=== PATIENT | female | born 1935 | race African-American/Black ===

== ENCOUNTER 2017-05-02 00:27 | Inpatient (IN) | payer SELFPAY ==
[~2017-05-02] VITALS: Ht 152.4 cm; Wt 70.8 kg
[2017-05-02] MEDS ORDERED: FUROSEMIDE 40MG/4ML VIAL IV ONE (02:30)
[2017-05-02] MEDS ORDERED: NITROGLYCERIN OINT 1GM/INCH UDPKT TD ONE (02:30)
[2017-05-02 02:45] LABS: BASOPHILS % 0.9 % (0.0-2.0); EOSINOPHILS % 0.2 % (0.0-5.0); HEMATOCRIT. 37.6 % (36.0-48.0); HEMOGLOBIN. 12.3 g/dL (12.0-16.0); LYMPHOCYTES % 11.5 % (20.0-50.0); MEAN CORPUSCULAR HEMOGLOBIN 31.6 pg (28.0-32.0); MEAN CORPUSCULAR VOLUME 96.2 fL (81.0-99.0); MEAN PLATELET VOLUME 9.5 fl (7.4-10.4); MONOCYTES % 4.7 % (2.0-8.0); NEUTROPHILS % 82.7 % (40.0-76.0); PLATELET 193 x1000/uL (130-400)
[2017-05-02 02:57] LABS: CARBON DIOXIDE 30 mEq/L (21-32); CHLORIDE 103 mEq/L (98-107)
[2017-05-02 03:17] LABS: TROPONIN I 0.57 ng/mL (0.00-0.04)
[2017-05-02] MEDS ORDERED: ASPIRIN 325MG TABLET PO ONE (05:00)
[2017-05-02 08:45] VITALS: BP 165/85
[2017-05-02] MEDS ORDERED: LORAZEPAM 2MG/ML CPJ IV PRN (09:00)
[2017-05-02] MEDS ORDERED: ACETAMINOPHEN 325MG TABLET PO PRN (09:00)
[2017-05-02] MEDS ORDERED: DEXTROSE 50% WATER 50ML SYRINGE IV PRN (09:00)
[2017-05-02] MEDS ORDERED: ENOXAPARIN 40MG/0.4ML SYR SUBCUT SCH (09:00)
[2017-05-02] MEDS ORDERED: TRAMADOL 50MG TABLET PO PRN (09:00)
[2017-05-02] MEDS ORDERED: ONDANSETRON HCL 4MG/2ML VIAL IV PRN (09:00)
[2017-05-02] MEDS ORDERED: IPRATROPIUM/ALBUTEROL 0.5-3(2.5)MG/3ML NEB INH PRN (09:00)
[2017-05-02] MEDS ORDERED: NA PHOS,M-B/NA PHOS,DI-BA ENEMA 118ML PR PRN (09:00)
[2017-05-02] MEDS ORDERED: GUAIFENESIN 200MG/10ML SUGAR FREE UDC PO PRN (09:00)
[2017-05-02] MEDS ORDERED: CLONIDINE 0.1MG TABLET PO PRN (09:00)
[2017-05-02] MEDS ORDERED: MAGNESIUM/ALUMINUM HYDROXIDE/SIMETHICONE 30ML UDC PO PRN (09:00)
[2017-05-02] MEDS: BLOOD SUGAR DIAGNOSTIC STRIP TEST SCH ×4 (09:00→21:53)
[2017-05-02] MEDS ORDERED: DOCUSATE SODIUM 100MG CAPSULE PO PRN (09:00)
[2017-05-02] MEDS: INSULIN LISPRO 100 UNITS/ML SUBCUT SCH ×4 (09:00→21:00)
[2017-05-02] MEDS ORDERED: DIPHENHYDRAMINE 50MG/ML VIAL IV PRN (09:00)
[2017-05-02] MEDS: PANTOPRAZOLE SODIUM 40 MG/VIAL IV SCH (09:42)
[2017-05-02] MEDS: FUROSEMIDE 40MG/4ML VIAL IVP SCH ×2 (09:42→21:53)
[2017-05-02] MEDS: ZINC SULFATE 220 MG ( 50 ) CAPSULE PO SCH (09:43)
[2017-05-02] MEDS: ASCORBIC ACID 500 MG TABLET PO SCH ×2 (09:43→21:53)
[2017-05-02] MEDS: METOPROLOL TARTRATE 25MG TABLET PO SCH ×2 (09:43→21:53)
[2017-05-02] MEDS: LISINOPRIL 20MG TABLET PO SCH ×2 (09:43→21:53)
[2017-05-02] MEDS: ASPIRIN 325MG EC TABLET PO SCH (09:43)
[2017-05-02] MEDS ORDERED: POTASSIUM CHLORIDE 20MEQ TABLET SR PO SCH (09:45)
[2017-05-02 10:58] VITALS: BP 165/85
[2017-05-02 12:00] VITALS: BP 131/70
[2017-05-02] MEDS: LEVOFLOXACIN 750MG PREMIX 150 ML IV SCH (12:32)
[2017-05-02 15:42] LABS: CREATINE KINASE MB FRACTION 5.2 ng/mL (0.5-3.6)
[2017-05-02 15:50] LABS: TROPONIN I 1.3 ng/mL (0.00-0.04)
[2017-05-02 16:00] VITALS: BP 174/89
[2017-05-02] MEDS: NITROGLYCERIN OINT 1GM/INCH UDPKT TD SCH ×2 (16:31→21:54)
[2017-05-02] MEDS: SPIRONOLACTONE 25MG TABLET PO SCH (17:29)
[2017-05-02 18:17] LABS: CLARITY URINE CLEAR (CLEAR); COLOR URINE YELLOW (YELLOW); GLUCOSE URINE NEGATIVE (NEGATIVE); KETONES URINE NEGATIVE (NEGATIVE); LEUKOCYTE ESTERASE URINE TRACE (NEGATIVE); NITRITE URINE NEGATIVE (NEGATIVE); OCCULT BLOOD URINE NEGATIVE (NEGATIVE); PH URINE 7.5 (4.5-8.0); PROTEIN URINE NEGATIVE (NEGATIVE); SPECIFIC GRAVITY URINE 1.008 (1.005-1.030); UROBILINOGEN URINE 0.2 E.U./dL (0.2-1.0)
[2017-05-02 18:43] LABS: *AMPHETAMINES SCREEN URINE NEGATIVE (NEGATIVE); *BARBITURATES SCREEN URINE NEGATIVE (NEGATIVE); *BENZODIAZEPINES SCREEN URINE NEGATIVE (NEGATIVE); *COCAINE SCREEN URINE NEGATIVE (NEGATIVE); CANNABINOID URINE SCREEN NEGATIVE (NEGATIVE); METHADONE URINE SCREEN NEGATIVE (NEGATIVE); OPIATES URINE SCREEN NEGATIVE (NEGATIVE); PHENCYCLIDINE URINE SCREEN NEGATIVE (NEGATIVE)
[2017-05-02 20:00] VITALS: BP 125/70
[2017-05-02] MEDS ORDERED: ENOXAPARIN 60MG/0.6ML SYR SUBCUT NR (20:00)
[2017-05-02] MEDS ORDERED: ZOLPIDEM TARTRATE 5MG TABLET PO PRN (21:00)
[2017-05-03 00:30] VITALS: BP 124/74
[2017-05-03] MEDS: NITROGLYCERIN OINT 1GM/INCH UDPKT TD SCH ×6 (00:51→20:50)
[2017-05-03 04:00] VITALS: BP 150/82
[2017-05-03] MEDS: BLOOD SUGAR DIAGNOSTIC STRIP TEST SCH ×4 (05:19→20:56)
[2017-05-03] MEDS: SPIRONOLACTONE 25MG TABLET PO SCH ×2 (05:19→17:45)
[2017-05-03] MEDS: INSULIN LISPRO 100 UNITS/ML SUBCUT SCH ×4 (05:30→20:56)
[2017-05-03] MEDS ORDERED: SODIUM CHLORIDE 0.45% 1,000 ML IV ONE (06:00)
[2017-05-03 06:46] LABS: BASOPHILS % 0.6 % (0.0-2.0); EOSINOPHILS % 1.1 % (0.0-5.0); HEMATOCRIT. 35.7 % (36.0-48.0); LYMPHOCYTES % 40.9 % (20.0-50.0); MEAN CORPUSCULAR HEMOGLOBIN 31.9 pg (28.0-32.0); MEAN CORPUSCULAR VOLUME 94.8 fL (81.0-99.0); MEAN PLATELET VOLUME 9.6 fl (7.4-10.4); MONOCYTES % 8.7 % (2.0-8.0); NEUTROPHILS % 48.7 % (40.0-76.0); PLATELET 193 x1000/uL (130-400); RED BLOOD CELL COUNT 3.77 mill/uL (4.2-5.4); RED CELL DISTRIBUTION WIDTH 12.9 % (11.6-14.6)
[2017-05-03 07:05] LABS: CARBON DIOXIDE 31 mEq/L (21-32); CHLORIDE 100 mEq/L (98-107); CREATINE KINASE 136 IU/L (26-192); CREATINE KINASE MB FRACTION 2.7 ng/mL (0.5-3.6); HDL CHOLESTEROL 40 mg/dL (40-59); LDL CHOLESTEROL 77 mg/dL (5-100)
[2017-05-03 08:00] VITALS: BP 149/78
[2017-05-03 08:10] LABS: TROPONIN I 0.68 ng/mL (0.00-0.04)
[2017-05-03] MEDS: ASCORBIC ACID 500 MG TABLET PO SCH ×2 (08:57→20:50)
[2017-05-03] MEDS: ZINC SULFATE 220 MG ( 50 ) CAPSULE PO SCH (08:57)
[2017-05-03] MEDS: LISINOPRIL 20MG TABLET PO SCH (08:57)
[2017-05-03] MEDS: PANTOPRAZOLE SODIUM 40 MG/VIAL IV SCH (08:58)
[2017-05-03] MEDS: METOPROLOL TARTRATE 25MG TABLET PO SCH (08:58)
[2017-05-03] MEDS: ASPIRIN 325MG EC TABLET PO SCH (09:50)
[2017-05-03] MEDS ORDERED: AMLODIPINE 2.5MG TABLET PO SCH (10:45)
[2017-05-03 12:00] VITALS: BP 154/92
[2017-05-03 16:00] VITALS: BP 140/79
[2017-05-03] MEDS: LOSARTAN POTASSIUM 50 MG TABLET PO SCH (17:45)
[2017-05-03 20:00] VITALS: BP 129/78
[2017-05-03] MEDS: CARVEDILOL 3.125 MG TABLET PO SCH (20:51)
[2017-05-03] MEDS: AMLODIPINE 5MG TABLET PO SCH (20:51)
[2017-05-04] VITALS: BP 126/78
[2017-05-04] MEDS: NITROGLYCERIN OINT 1GM/INCH UDPKT TD SCH ×4 (01:01→12:00)
[2017-05-04 04:00] VITALS: BP 132/68
[2017-05-04] MEDS: BLOOD SUGAR DIAGNOSTIC STRIP TEST SCH ×2 (05:49→12:10)
[2017-05-04] MEDS: SPIRONOLACTONE 25MG TABLET PO SCH (05:49)
[2017-05-04] MEDS: INSULIN LISPRO 100 UNITS/ML SUBCUT SCH ×2 (05:49→12:14)
[2017-05-04 06:23] LABS: BASOPHILS % 0.6 % (0.0-2.0); EOSINOPHILS % 1.8 % (0.0-5.0); HEMATOCRIT. 33.1 % (36.0-48.0); HEMOGLOBIN. 11.1 g/dL (12.0-16.0); MEAN CORPUSCULAR HEMOGLOBIN 31.8 pg (28.0-32.0); MEAN CORPUSCULAR VOLUME 94.5 fL (81.0-99.0); MEAN PLATELET VOLUME 9.2 fl (7.4-10.4); NEUTROPHILS % 49.6 % (40.0-76.0); PLATELET 185 x1000/uL (130-400); RED CELL DISTRIBUTION WIDTH 12.9 % (11.6-14.6)
[2017-05-04 07:22] LABS: CREATINE KINASE MB FRACTION 0.9 ng/mL (0.5-3.6)
[2017-05-04 07:34] LABS: TROPONIN I 0.42 ng/mL (0.00-0.04)
[2017-05-04 08:00] VITALS: BP 119/68
[2017-05-04] MEDS: LOSARTAN POTASSIUM 50 MG TABLET PO SCH (09:00)
[2017-05-04] MEDS ORDERED: FAMOTIDINE 20MG TABLET PO SCH (09:00)
[2017-05-04] MEDS: AMLODIPINE 5MG TABLET PO SCH (09:00)
[2017-05-04] MEDS: ASCORBIC ACID 500 MG TABLET PO SCH (09:14)
[2017-05-04] MEDS: ZINC SULFATE 220 MG ( 50 ) CAPSULE PO SCH (09:14)
[2017-05-04] MEDS: ASPIRIN 325MG EC TABLET PO SCH (09:14)
[2017-05-04] MEDS: CARVEDILOL 3.125 MG TABLET PO SCH (09:14)
[2017-05-04] MEDS: LEVOFLOXACIN 750MG PREMIX 150 ML IV SCH (11:09)
[2017-05-04 12:00] VITALS: BP 135/80
[2017-05-04 12:42] VITALS: BP 135/80
[2017-05-04] MEDS ORDERED: FUROSEMIDE 20MG TABLET PO SCH (21:00)
[2017-05-06] MEDS ORDERED: LEVOFLOXACIN 250MG TABLET PO SCH (11:00)
== END 2017-05-04 15:10 | disposition home or self-care (01) | DRG 190 ==
LOC: ER 00:27 → 7WST 05:19 → EDBEDREQ 05:22 → ENRESERV 07:00
PROVIDERS: ADMIT Internal Medicine; ATTEND Internal Medicine
DX: I21.4 Non-ST elevation (NSTEMI) myocardial infarction (principal); J96.90 Respiratory failure, unspecified, unspecified whether with hypoxia or hypercapnia; I50.43 Acute on chronic combined systolic (congestive) and diastolic (congestive) heart failure; J18.9 Pneumonia, unspecified organism; I42.9 Cardiomyopathy, unspecified; E11.9 Type 2 diabetes mellitus without complications; I11.0 Hypertensive heart disease with heart failure; I45.10 Unspecified right bundle-branch block; D72.829 Elevated white blood cell count, unspecified; E87.6 Hypokalemia; J45.909 Unspecified asthma, uncomplicated; N28.9 Disorder of kidney and ureter, unspecified
CPT/HCPCS: 36415; 71010; 80048; 80053; 80061; 80305; 81001; 82550; 82553; 82962; 83036; 83735; 83880; 84481; 84484; 85025; 85379; 87040; 87086; 93005; 93306; 93970; 96374; 99291; C9113; J1650; J1815; J1940; J1956; J7050